=== PATIENT | female | born 1995 | race Hispanic/Latino ===

== ENCOUNTER 2016-09-06 12:03 | Emergency (ER) | payer OTHER ==
[~2016-09-06] VITALS: Ht 160 cm; Wt 59.0 kg
[2016-09-06 12:12] VITALS: BP 123/76
[2016-09-06] MEDS ORDERED: TRAMADOL HCL50 M1 PO (13:22)
[2016-09-06] MEDS ORDERED: AMOXICILLIN875 M1 PO (13:22)
--- NOTE | 2016-09-06 13:26 | ED EAR COMPLAINT ---
History of Present Illness General Chief Complaint: Ear Complaints Stated Complaint: EAR PAIN Source: patient Exam Limitations: no limitations Vital Signs & Intake/Output Vital Signs & Intake/Output Vital Signs Date Time Temp Pulse Resp B/P Pulse O2 O2 Flow FiO2 Ox Delivery Rate 09/06 1212 98.5 76 18 123/76 99 Room Air Allergies Coded Allergies: No Known Drug Allergies (09/06/16) Reconcile Medications Amoxicillin 875 MG TABLET 1 TAB PO BID otitis media Tramadol HCl 50 MG TABLET 1 TAB PO BIDP PRN pain Triage Note: C/O R EAR PAIN X 2 DAYS. Triage Nurses Notes Reviewed? yes Onset: Gradual Duration: day(s): (2) Timing: remote history Injury Environment: home Severity: moderate Severity Numbers: 8 No Modifying Factors: none : No Patient currently breastfeeds: No HPI: Patient is a 21-year-old female presenting to the emergency department with chief complaint of right ear pain [id number]. Pain is achy and throbbing. Nothing seems to make it better or worse. Denies any nausea or vomiting. Denies any change in hearing. She does report mild upper respiratory congestion. (REINA LOYOLA) Past History Travel History Traveled to [place] past 21 day No Medical History Any Pertinent Medical History? see below for history Neurological: NONE EENT: NONE Cardiovascular: NONE Respiratory: NONE Gastrointestinal: NONE Hepatic: NONE Renal: NONE Musculoskeletal: NONE Psychiatric: NONE Endocrine: NONE Surgical History Surgical History: non-contributory Psychosocial History What is your primary language Danish Tobacco Use: Never used ETOH Use: occasional use Family History Hx Contributory? No (REINA LOYOLA) Review of Systems Review of Systems Constitutional: Reports: no symptoms. Comments Review of systems: See HPI, All other systems negative. Constitutional, no chills fever or weight loss HEENT: No visual changes no sore throat Cardiovascular: No chest pain ,palpitation , orthopnea or ankle swelling Skin, no jaundice no rashes Respiratory: No dyspnea cough sputum or hemoptysis GI: No nausea no vomiting Muscle skeletal: no back pain, no neck pain, Neurologic: No numbness no confusion Psych: No stress anxiety Immunology: No splenectomy or history of AIDS (REINA LOYOLA) Physical Exam Physical Exam General Appearance: well developed/nourished, no apparent distress, alert, awake , comfortable Ears: Right: swelling, tenderness, Tympanic red, Tympanic bulging. Comments: Well-developed well-nourished person in no acute distress HEENT: Pupils equally round and reactive to light and accommodation. Nose is atraumatic. External auditory canal clear bilaterally, right tympanic membrane is erythematous and bulging. Pharynx normal. No swelling or edema. Neck: Supple, no lymphadenopathy, normal range of motion without pain or tenderness Back: Nontender Cardiovascular: Regular rate and rhythms no murmurs rubs or gallops, normal JVP Respiratory: Chest nontender. No respiratory distress.breath sounds clear to auscultation bilaterally Extremity: No edema, Neuro: Alert oriented x3, Skin: No appreciable rash on exposed skin, skin is warm and dry. Psych: Mood and affect is normal, memory and judgment is normal. (REINA LOYOLA) Progress Differential Diagnoses I considered the following diagnoses in my evaluation of the patient: Otitis media, upper respiratory infection, viral syndrome, otitis externa Plan of Care: Current Medications Sig/Dana Start time Last Medication Dose Stop Time Status Admin Ketorolac 30 MG ONE ONE 09/06 1330 UNVr Tromethamine 09/06 1331 (Toradol) Initial ED EKG: none (REINA LOYOLA) Departure Departure Time of Disposition: 1320 Disposition: HOME OR SELF CARE Condition: Stable Clinical Impression Primary Impression: Otitis media Qualifiers: Otitis media type: unspecified Laterality: right Chronicity: unspecified Qualified Code: H66.91 - Otitis media, unspecified, right ear Referrals: [facility] PATIENT HAS NO PRIMARY CARE DR (PCP/Family) Additional Instructions: Follow-up with [facility] call to make appointment. Take amoxicillin as prescribed. Take tramadol as prescribed for severe pain. Otherwise use over- the-counter Tylenol or Motrin. Increase fluids. Return for worsening symptoms or concerns. Departure Forms: Customer Survey General Discharge Information Prescriptions: Current Visit Scripts Amoxicillin 1 TAB PO BID #20 TAB Tramadol HCl 1 TAB PO BIDP PRN pain #8 TAB (REINA LOYOLA) PA/RN FIRST ASSISTANT Co-Sign Statement Statement: ED Attending supervision documentation- [] I saw and evaluated the patient. I have also reviewed all the pertinent lab results and diagnostic results. I agree with the findings and the plan of care as documented in the PA's/RN FIRST ASSISTANT's documentation. x I have reviewed the ED Record and agree with the PA's/RN FIRST ASSISTANT's documentation. [] Additions or exceptions (if any) to the PAs/RN FIRST ASSISTANT's note and plan are summarized below: [] (FARHAT BIRCH,GREGOR)
== END 2016-09-06 13:29 ==
LOC: ERH 12:03
DX: H66.91 Otitis media, unspecified, right ear (principal)
CPT/HCPCS: 96372